=== PATIENT | female | born 1960 | race Caucasian/White ===

== ENCOUNTER 2020-03-10 08:27 | Day surgery (SDC) | payer BC ==
[~2020-03-10] VITALS: Ht 170.2 cm; Wt 69.3 kg
[~2020-03-10 08:27] MED LIST: ASPI81CH PO; ATOR40TA PO; DILTIAZEM 24HR240 MG PO; Flomax0.4 MG PO; INVOKANA300 MG PO; KETO10 PO; LISI5 PO; LOFIBRA PO; MAGCHL64ER; MELA3 PO; METF500 PO; PIOG30 PO; Percocet 5-3251 EACH PO; SERT100 PO; Spironolactone50 MG PO; Synthroid100 MCG; TRULICITY0.75 MG/0. SQ; Zofran Odt8 MG SL
== END 2020-03-10 09:50 | disposition home or self-care (01) ==
LOC: ORSCSDS 08:27
PROVIDERS: Internal Medicine Gastroenterology
PROC: 0DBN8ZX Excision of Sigmoid Colon, Via Natural or Artificial Opening Endoscopic, Diagnostic (ICD-10-PCS; principal; 2020-03-10 09:45)
DX: Z12.11 Encounter for screening for malignant neoplasm of colon (principal); K51.40 Inflammatory polyps of colon without complications; Z86.010 Personal history of colon polyps; K57.30 Diverticulosis of large intestine without perforation or abscess without bleeding; E11.9 Type 2 diabetes mellitus without complications; Z79.899 Other long term (current) drug therapy
CPT/HCPCS: 82947; 88305; J2704; J7120